=== PATIENT | male | born 1990 | race Caucasian/White ===

== ENCOUNTER 2019-07-07 13:31 | Emergency (ER) | payer SELFPAY ==
[2019-07-07 13:38] VITALS: BP 175/90; PULSE 85; RESP 16; TEMP 37; O2SAT 98
--- NOTE | 2019-07-07 13:53 | ED.GENADUL_ITS ---
Discharge Plan Disposition Patient Disposition: HOME Condition: Improving Discharge Details Chief Complaint: DentalOral Clinical Impression: Odontalgia Primary Care Provider: None,None ED Provider: Zaid Garcia Home Meds and New Rx's Prescriptions: New penicillin V potassium 500 mg tablet 500 mg PO TID 10 Days Qty: 30 RF: 0 Discharge Instructions Instructions: Toothache (ED) Additional Instructions: Continue warm salt water gargles, please follow-up with dentistry. Call for an appointment time. Take penicillin as prescribed. May use Tylenol and/or ibuprofen as needed for pain. Return for drooling, change to voice, inability to swallow, or any other acute concerns. Please follow a soft diet. Medical Decision Making 28-year-old male with weeks of dental pain he attributes to unerupted molars. He has a partially erupted left lower first molar, tooth #32 that is tender and likely is developing a periapical infection. His vital signs are notable for mild hypertension. I will place him on a course of penicillin. He is given referral resources for dentistry follow-up. He understands homecare as well as return precautions. HPI General Mode of arrival: ambulatory . Date/Time Provider Initiated Documentation: 07/07/19 13:36 . Limitations to Documentation: no limitations . Information obtained by: patient . History of Present Illness 28 year old M presents to the emergency department with the chief complaint of Abdominal pain left lower, described as moderate, Quality is described as dull and constant, and is localized to the mouth and left. Patient reports no radiation. Patient started experiencing this day(s) and it has been intermittent. No relieving factors improve symptom(s), No exacerbating factors reported . Patient notes other (No change to voice or swallowing); denies fever/chills, headaches, loss of appetite and nausea/vomiting. Patient did receive the following treatments prior to arrival, NSAID Related Data Home Medications Medication Instructions Recorded Confirmed penicillin V potassium 500 mg PO TID 10 Days #30 tab 07/07/19 Previous Rx's Medication Instructions Recorded penicillin V potassium 500 mg PO TID 10 Days #30 tab 07/07/19 Allergies Allergy/AdvReac Type Severity Reaction Status Date / Time ceftriaxone sodium Allergy Hives Unverified 07/07/19 13:42 [From [facility]] General Stated Complaint: DentalOral MARLENA: 4 Review of Systems Narrative: See HPI, 6 systems reviewed and otherwise negative PFSH Social History Smoking/Tobacco Use Status: Current every day Tobacco Type: cigarettes Alcohol Intake: never Drug use: Daily Substance use type: marijuana Exam Narrative Exam Narrative: GEN: awake, alert, oriented 3. Pleasant, well groomed, interactive. HEAD: Normocephalic, atraumatic ENT: Mucous membranes moist, oropharynx with partially erupted left lower first molar, tender with mild surrounding edema, no fluctuance, tympanic membranes clear, External ear exam unremarkable EYES: PERRL, EOMI NECK: Full ROM, no HARRISON, no menigismus CHEST/RESP: Nontender, clear to auscultation bilateral, no wheeze/rhonchi/rales CARDIOVASCULAR: RRR, no murmur, rub shavon. 2+ Rad pulse bilateral EXT: Full ROM, no edema, no rash Neuro: Grossly normal neurologic exam, conversant, interactive. Psych: Speech fluent, thoughts congruent, affect normal Course Vital Signs Vital signs: Vital Signs Temperature 37 C 07/07/19 13:38 Pulse 85 07/07/19 13:38 Respiratory Rate 16 07/07/19 13:38 Blood Pressure 175/90 H 07/07/19 13:38 Pulse Oximetry 98 07/07/19 13:38 Temperature 37 C 07/07/19 13:38 Temperature Source Skin 07/07/19 13:38 Pulse 85 07/07/19 13:38 Respiratory Rate 16 07/07/19 13:38 Respiratory Effort Non-Labored 07/07/19 13:38 Blood Pressure 175/90 H 07/07/19 13:38 Blood Pressure Position Sitting 07/07/19 13:38 Pulse Oximetry 98 07/07/19 13:38 Oxygen Delivery Method Room Air 07/07/19 13:38 Oxygen Flow Rate 0 07/07/19 13:38 Pain Level 7 07/07/19 13:43
[2019-07-07] MEDS: Penicillin V POTASSIUM 500 MG TAB PO (14:00)
[2019-07-07] MEDS: Acetaminophen 500 MG TAB 1000 MG PO (14:00)
== END 2019-07-07 14:05 | disposition home or self-care (01) ==
LOC: ER 14:03
PROVIDERS: Emergency Provider Emergency Medicine
DX: R68.84 Jaw pain (principal); K08.89 Other specified disorders of teeth and supporting structures
CPT/HCPCS: 99283